=== PATIENT | female | born 1995 | race African-American/Black ===

== ENCOUNTER → 2019-06-27 | Outpatient (CLI) | payer MEDICAID ==
[2019-06-27 17:38] LABS: ABSOLUTE EOSINOPHILS # (AUTO) 0.1 10^3/uL (0.0-0.6); ABSOLUTE LYMPHOCYTES (AUTO) 1.4 10^3/uL (0.5-4.7); ABSOLUTE MONOCYTES (AUTO) 0.6 10^3/uL (0.1-1.4); ABSOLUTE NEUT (AUTO) 7.1 10^3/uL (1.7-8.2); BASOPHILS % (AUTO) 0.4 % (0-2); EOSINOPHILS % (AUTO) 1.4 % (0-6); HEMATOCRIT 28.9 % (36.0-47.0); HEMOGLOBIN 10.2 g/dL (12.0-15.5); LYMPHOCYTES % (AUTO) 15.2 % (13-45); MEAN CORPUSCULAR HEMOGLOBIN 31.9 pg (27.0-33.4); MEAN CORPUSCULAR HGB CONC 35.2 g/dL (32.0-36.0); MEAN CORPUSCULAR VOLUME 91 fl (80-97); MONOCYTES % (AUTO) 6.3 % (3-13); PLATELET COUNT 188 10^3/uL (150-450); RED CELL DISTRIBUTION WIDTH 13.3 % (11.5-14.0); SEGMENTED NEUTROPHILS % (AUTO) 76.7 % (42-78); TOTAL CELLS COUNTED % (AUTO) 100 %; WHITE BLOOD COUNT 9.3 10^3/uL (4.0-10.5)
== END ==
LOC: OD 16:56
PROVIDERS: ATTEND Obstetrics & Gynecology
DX: Z34.03 Encounter for supervision of normal first pregnancy, third trimester (principal)
CPT/HCPCS: 36415; 85025

== ENCOUNTER 2019-07-14 14:40 | Inpatient (IN) | payer MEDICAID ==
[2019-07-14] MEDS ORDERED: PENICILLIN G POTASSIUM 5,000,000 UNIT in DEXTROSE 5%-WATER 100 ML IV ONE (15:09)
[2019-07-14 15:15] LABS: APPEARANCE,URINE CLEAR; BILIRUBIN,URINE NEGATIVE (NEGATIVE); COLOR,URINE STRAW; GLUCOSE, URINE NEGATIVE (NEGATIVE); KETONES,URINE NEGATIVE (NEGATIVE); LEUKOCYTE ESTERASE,URINE NEGATIVE (NEGATIVE); NITRITE,URINE NEGATIVE (NEGATIVE); PROTEIN,URINE NEGATIVE (NEGATIVE); URINE SPECIFIC GRAVITY 1.004; UROBILINOGEN,URINE NEGATIVE mg/dL (<2.0)
[2019-07-14 15:17] LABS: ABSOLUTE EOSINOPHILS # (AUTO) 0.1 10^3/uL (0.0-0.6); ABSOLUTE LYMPHOCYTES (AUTO) 1.4 10^3/uL (0.5-4.7); ABSOLUTE MONOCYTES (AUTO) 0.7 10^3/uL (0.1-1.4); ABSOLUTE NEUT (AUTO) 8.2 10^3/uL (1.7-8.2); BASOPHILS % (AUTO) 0.4 % (0-2); EOSINOPHILS % (AUTO) 0.9 % (0-6); HEMATOCRIT 31.4 % (36.0-47.0); HEMOGLOBIN 10.9 g/dL (12.0-15.5); LYMPHOCYTES % (AUTO) 13.5 % (13-45); MEAN CORPUSCULAR HEMOGLOBIN 31.8 pg (27.0-33.4); MEAN CORPUSCULAR HGB CONC 34.8 g/dL (32.0-36.0); MEAN CORPUSCULAR VOLUME 91 fl (80-97); MONOCYTES % (AUTO) 6.6 % (3-13); PLATELET COUNT 197 10^3/uL (150-450); RED BLOOD COUNT 3.44 10^6/uL (3.72-5.28); SEGMENTED NEUTROPHILS % (AUTO) 78.6 % (42-78); TOTAL CELLS COUNTED % (AUTO) 100 %; WHITE BLOOD COUNT 10.4 10^3/uL (4.0-10.5)
[2019-07-14 15:34] LABS: URINE AMPHETAMINES SCREEN NEGATIVE; URINE BARBITURATES SCREEN NEGATIVE; URINE BENZODIAZEPINES SCREEN NEGATIVE; URINE COCAINE SCREEN NEGATIVE; URINE MARIJUANA (THC) SCREEN NEGATIVE; URINE METHADONE SCREEN NEGATIVE; URINE PHENCYCLIDINE SCREEN NEGATIVE
[2019-07-14] MEDS ORDERED: OXYTOCIN/NORMAL SALINE 20 UNIT/1,000 ML RTUINJ IV PRN (15:34)
[2019-07-14 15:39] LABS: ALBUMIN 3.7 g/dL (3.5-5.0); ALKALINE PHOSPHATASE 124 U/L (38-126); ANION GAP 7 (5-19); ASPARTATE AMINO TRANSFERASE 18 U/L (14-36); BILIRUBIN,TOTAL 0.4 mg/dL (0.2-1.3); BLOOD UREA NITROGEN 12 mg/dL (7-20); CALCIUM 9.5 mg/dL (8.4-10.2); CARBON DIOXIDE 26 mmol/L (22-30); CHLORIDE 105 mmol/L (98-107); GLUCOSE 73 mg/dL (75-110); POTASSIUM 3.7 mmol/L (3.6-5.0); TOTAL PROTEIN 7.3 g/dL (6.3-8.2); UR PRO/CREAT RATIO RESULT 0.5 mg/mg (0.0-0.2); URIC ACID 7.7 mg/dL (2.5-6.2); URINE CREATININE 44.3 mg/dL (16-327); URINE PROTEIN 21.2 mg/dL (<12)
--- NOTE | 2019-07-14 16:15 | Admission Physical ---
Datetime Report Generated by CPN: 07/14/2019 16:15 CURRENT ADMISSION Chief Complaint: Sent from OB Office for Evaluation and Treatment - Please Specify Chief Complaint Other: elevated BP x2 with abnormal labs Indication for Induction: PreEclampsia Admit Impression : Term, Intrauterine Admit Plan: Admit to Unit; Initiate Labor Induction Protocol ALLERGIES Medication Allergies: No Medication Allergies: No Known Drug Allergies (07/14/2019) Latex: No Latex Allergies Food Allergies: None Environmental Allergies: None OBSTETRICAL HISTORY EDC: 08/02/2019 00:00 : 1 Para: 0 Term: 0 : 0 SAB: 0 IAB: 0 Ectopic: 0 Livin Cesareans: 0 VBACs: 0 Multiple Births: 0 Gestational Diabetes: No Rh Sensitization: No Incompetent Cervix: No BASSEM: No Infertility: No ART Treatment: No Uterine Anomaly: No IUGR: No Hx Previous C/S: No Macrosomia: No Hx Loss/Stillborn: No PIH: No Hx : No Placenta Previa/Abruption: No Depression/PP Depression: No PTL/PROM: No Post Hemorrhage: No Current Procedures: Ultrasound; NST Obstetrical History Comments: G1 - [place] SEE RECORDS Alcohol: No Marijuana : No Cocaine: No Other Illicit Drugs: No Cigarettes: Never Smoker. [id number] MEDICAL HISTORY Diabetes: No Blood Transfusion: No Pulmonary Disease (Asthma, TB): No Breast Disease: No Hypertension: No Cognos Consultant Surgery: No Heart Disease: No Hosp/Surgery: No Autoimmune Disorder: No Anesthetic Complications: No Kidney Disease: No Abnormal Pap Smear: No Neuro/Epilepsy: No Psychiatric Disorders: No Other Medical Diseases: No Hepatitis/Liver Disease: No Significant Family History: No Varicosities/Phlebitis: No Trauma/Violence : No Thyroid Dysfunction: No INFECTIOUS HISTORY Gonorrhea: No Genital Herpes: No Chlamydia: No Tuberculosis: No Syphilis: No Hepatitis: No HIV/AIDS Exposure: No Rash or Viral Illness: No HPV: No PHYSICAL EXAM General: Normal HEENT: Normal Neurologic: Normal Thyroid: Deferred Heart: Normal Lungs: Normal Breast: Deferred Back: Normal Abdomen: Normal Genitourinary Exam: Normal Extremities: Normal DTRs: Normal Pelvic Type: Adequate Vital Signs: Reviewed Details Vital Signs: mild range elevation in BP VAGINAL EXAM Dilatation: 5 Effacement: 90 Station: -1 Contraction Comments: irreg MEMBRANES Membranes: Intact FETUS A EGA: 37.2 Monitoring: External US FHR- Baseline: 135 Variability: Moderate 6-25bpm Accelerations: 15X15 Decelerations: None Estimated Weight (gm): 3500 Presentation: Vertex Admit Comment: at term with elevated BP since 11/4/19. abnormal labs=creatinine 1.4 and pr/cr 0.5. dx of preeclampsia today with favorable cx. c/w dr tristan and pitocin ordered. +GBS-penicillin ordered. pt agrees with plan for IOL now. PLANS FOR LABOR AND DELIVERY Labor and Delivery: None Pain Management: Natural; Medications; Epidural Feeding Preference: Breast Benefit of Breast Feed Discussed: Yes Circumcision: N/A INFORMED CONSENT Assignment: Aida Tristan MD Signature: with User ID: [email or web address] : with User ID: [email or web address]
[2019-07-14] MEDS ORDERED: OXYTOCIN 10 UNIT/ML VIAL ONE (16:41)
[2019-07-14] MEDS ORDERED: PENICILLIN G-K 5 MILLION UNIT VIAL ONE ×2 (16:41→20:44)
[2019-07-14] MEDS ORDERED: OXYTOCIN/NORMAL SALINE 20 UNIT/1,000 ML RTUINJ ONE (16:42)
[2019-07-14] MEDS ORDERED: MISOPROSTOL 0.2 MG TABLET ONE (16:42)
[2019-07-14] MEDS ORDERED: LIDOCAINE 1% INJ-PF (10 MG/ML) 30 ML SDV ONE (16:42)
[2019-07-14] MEDS: RINGERS SOLUTION,LACTATED 1,000 ML IV PRN (16:52)
[2019-07-14] MEDS ORDERED: HYDRALAZINE HCL INJ/PF 20 MG/1 ML SDV ONE (18:23)
[2019-07-14] MEDS ORDERED: HYDRALAZINE HCL INJ/PF 20 MG/1 ML SDV IV ONE (18:24)
[2019-07-14] MEDS: PENICILLIN G POTASSIUM 2,500,000 UNIT in DEXTROSE 5%-WATER 50 ML IV SCH (20:51)
[2019-07-15] MEDS ORDERED: BUPIVACAINE HCL 0.25 % INJ/PF (2.5 MG/1 ML) 30 ML VIAL ONE (00:13)
[2019-07-15] MEDS ORDERED: FENTANYL/BUPIVACAINE/NS/PF 300 MCG/150 ML RTUINJ EPI ONE (00:13)
[2019-07-15] MEDS ORDERED: EPHEDRINE SULFATE INJ 50 MG/1 ML AMPULE ONE (00:13)
[2019-07-15] MEDS: RINGERS SOLUTION,LACTATED 1,000 ML IV PRN (01:00)
[2019-07-15] MEDS ORDERED: PENICILLIN G-K 5 MILLION UNIT VIAL ONE (01:23)
[2019-07-15] MEDS: PENICILLIN G POTASSIUM 2,500,000 UNIT in DEXTROSE 5%-WATER 50 ML IV SCH ×2 (01:30→06:04)
[2019-07-15] MEDS ORDERED: ACETAMINOPHEN 650 MG SUPP.RECT PR PRN (04:31)
[2019-07-15] MEDS ORDERED: PROMETHAZINE HCL INJ 25 MG/1 ML VIAL IV PRN (04:31)
[2019-07-15] MEDS ORDERED: DIPH/PERTUSS(ACELL)/TETANUS VAC/PF 0.5 ML SYR (>=10YO) IM PRN (04:31)
[2019-07-15] MEDS ORDERED: PROMETHAZINE HCL 25 MG TABLET PO PRN (04:31)
[2019-07-15] MEDS ORDERED: MAGNESIUM HYDROXIDE SUSP 30 ML UDCUP PO PRN (04:31)
[2019-07-15] MEDS ORDERED: DIBUCAINE 1% OINTMENT 56 GM TP PRN (04:31)
[2019-07-15] MEDS ORDERED: MEASLES,MUMPS&RUBELLA VACC/PF 0.5 ML VIAL SUBCUT PRN (04:31)
[2019-07-15] MEDS ORDERED: ZOLPIDEM TARTRATE 5 MG TABLET PO PRN (04:31)
[2019-07-15] MEDS ORDERED: ACETAMINOPHEN WITH CODEINE #3 TABLET PO PRN ×2 (04:31)
[2019-07-15] MEDS ORDERED: PSEUDOEPHEDRINE HCL 30 MG TABLET PO PRN (04:31)
[2019-07-15] MEDS ORDERED: BENZOCAINE/MENTHOL AEROSOL SPRAY 56 ML TOP PRN (04:31)
[2019-07-15] MEDS ORDERED: PROMETHAZINE HCL 25 MG SUPP.RECT PR PRN (04:31)
[2019-07-15] MEDS ORDERED: NA PHOS,M-B/NA PHOS,DI-BA (ADULT) 133 ML ENEMA PR PRN (04:31)
[2019-07-15] MEDS ORDERED: DIPHENHYDRAMINE HCL 25 MG CAPSULE PO PRN (04:31)
[2019-07-15] MEDS ORDERED: OXYTOCIN/NORMAL SALINE 20 UNIT/1,000 ML RTUINJ IV PRN (04:31)
[2019-07-15] MEDS ORDERED: GLYCERIN/WITCH HAZEL LEAF 1 EACH MED..WIPE TP PRN (04:31)
[2019-07-15] MEDS ORDERED: IBUPROFEN 800 MG TABLET ONE (05:38)
[2019-07-15] MEDS: IBUPROFEN 800 MG TABLET PO SCH ×3 (05:40→21:09)
--- NOTE | 2019-07-15 05:54 | Delivery Summary ---
Del Sum A-C Datetime Report Generated by CPN: 07/15/2019 05:54 DELIVERY PERSONNEL DELIVERY PERSONNEL: [id number] Delivery Doctor:: Aida Cohn MD Labor and Delivery Nurse:: Mihaela Vázquez RN Nursery Nurse:: Linda Nicolas RN Billet Checker/SENIOR SALES EXECUTIVE: Patria Ross, ST MATERNAL INFORMATION Delivery Anesthesia: Epidural Medications After Delivery: Pitocin Drip 20 Units/1000ml NSS Estimated Blood Loss (ml): 200 Delivery QBL: 200 Delivery QBL Comment: Delivery 200 Maternal Complications: None LABOR SUMMARY EDC: 08/02/2019 00:00 No. Babies in Womb: 1 Attempted: No Labor Anesthesia: Epidural LABOR INFORMATION Reason for Induction: Gestational Hypertension; Pre-Eclampsia Onset of Labor: 07/14/2019 23:35 Complete Dilatation: 07/15/2019 03:36 Oxytocin: N/A Group B Beta Strep: positive Antibiotics # of Doses: 3 Antibiotics Time of Last Dose: 0130 Name of Antibiotic Given: pcn Steroids Given: None Reason Steroids Not Administered: Not Applicable MEMBRANES Membranes Rupture Method: Spontaneous Rupture of Membranes: 07/15/2019 02:14 Length of Rupture (hr): 1.65 Amniotic Fluid Color: Clear Amniotic Fluid Amount: Small STAGES OF LABOR Stage 1 hr: 4 Stage 1 min: 1 Stage 2 hr: 0 Stage 2 min: 17 Stage 3 hr: 0 Stage 3 min: 3 Total Time in Labor hr: 4 Total Time in Labor min: 21 VAGINAL DELIVERY Episiotomy: None Laceration #1: None Laceration Extension #1: N/A Laceration Repair: Yes Sponge Count Correct: Yes Sharps Count Correct: Yes CSECTION DELIVERY Primary Indication: N/A CSection Incidence: N/A Labor: N/A Elective: N/A BABY A INFORMATION Delivery Date/Time: 07/15/2019 03:53 Method of Delivery: Vaginal Born in Route : No : N/A Forceps: N/A Vacuum Extraction: N/A Shoulder Dystocia : No PRESENTATION/POSITION BABY A Presentation: Cephalic Breech Presentation: N/A PLACENTA INFORMATION BABY A Placenta Delivery Time : 07/15/2019 03:56 Placenta Method of Delivery: Spontaneous Placenta Status: Delivered SCORES BABY A Heart Rate 1 min: >100 bpm Resp Effort 1 min: Good Cry Reflex Irritability 1 min: Cough or Sneeze or Pulls Away Muscle Tone 1 min: Active Motion Color 1 min: Body [place], Extremities Blue Resuscitation Effort 1 min: Tactile Stimulation SCORE 1 MIN: 9 Heart Rate 5 min: >100 bpm Resp Effort 5 min: Good Cry Reflex Irritability 5 min: Cough or Sneeze or Pulls Away Muscle Tone 5 min: Active Motion Color 5 min: Body [place], Extremities Blue Resuscitation Effort 5 min: Tactile Stimulation SCORE 5 MIN: 9 INFANT INFORMATION BABY A Gestational Age at Delivery: 37.3 Gestational Status: Early Term- 37- 38.6 Weeks Outcome : Liveborn Infant Condition : Stable Infant Sex: Male IDENTIFICATION BABY A Verification Date/Time: 07/15/2019 04:08 ID Band Number: [id number] Mother's Name Verified: Yes RN Verifying : Can Pena, RN and Mihaela Gurpreet, RN WEIGHT/LENGTH BABY A Infant Birthweight (gm): 2830 Weight (lb): 6 Infant Weight (oz): 4 Infant Length (in): 20.00 Infant Length (cm): 50.80 CORD INFORMATION BABY A No. Cord Vessels: 3 Nuchal Cord : N/A ASSESSMENT BABY A Infant Complications: None Physical Findings at Delivery: Within Normal Limits Respirations: Appears Normal Skin to Skin: Yes Cognos Developer/ALS Called : No Transferred To: Remains with Mother SIGNATURES Signature: with User ID: [email or web address] : I was personally available for consultation and serving as supervising physician for the MLP.
[2019-07-15] MEDS: DOCUSATE SODIUM 100 MG CAPSULE PO SCH ×2 (09:31→17:14)
[2019-07-15] MEDS: PRENATAL VITAMIN W DHA CAPSULE PO SCH (09:31)
[2019-07-15] MEDS: SENNOSIDES/DOCUSATE 8.6-50 MG 1 EACH TABLET PO SCH (09:31)
[2019-07-15] MEDS: FERROUS SULFATE 325 MG TABLET PO SCH ×2 (09:31→17:14)
[2019-07-15] MEDS: FAMOTIDINE 20 MG TABLET PO SCH ×2 (09:35→21:09)
[2019-07-15] MEDS ORDERED: INFLUENZA QUAD (6MOS+) 2019-20 VAC 0.5 ML SYR IM ONE (09:45)
[2019-07-16] MEDS: IBUPROFEN 800 MG TABLET PO SCH ×3 (07:23→21:20)
[2019-07-16 08:24] LABS: HEMATOCRIT 21.5 % (36.0-47.0); MEAN CORPUSCULAR HEMOGLOBIN 31.6 pg (27.0-33.4); MEAN CORPUSCULAR HGB CONC 35.1 g/dL (32.0-36.0); MEAN CORPUSCULAR VOLUME 90 fl (80-97); PLATELET COUNT 142 10^3/uL (150-450); RED BLOOD COUNT 2.39 10^6/uL (3.72-5.28); RED CELL DISTRIBUTION WIDTH 13.2 % (11.5-14.0); WHITE BLOOD COUNT 12.4 10^3/uL (4.0-10.5)
[2019-07-16 08:26] LABS: HEMOGLOBIN 7.6 g/dL (12.0-15.5)
[2019-07-16] MEDS: SENNOSIDES/DOCUSATE 8.6-50 MG 1 EACH TABLET PO SCH (09:40)
[2019-07-16] MEDS: FERROUS SULFATE 325 MG TABLET PO SCH ×2 (09:40→17:14)
[2019-07-16] MEDS: PRENATAL VITAMIN W DHA CAPSULE PO SCH (09:40)
[2019-07-16] MEDS: FAMOTIDINE 20 MG TABLET PO SCH ×2 (09:40→21:20)
[2019-07-16] MEDS: DOCUSATE SODIUM 100 MG CAPSULE PO SCH ×2 (09:40→17:14)
[2019-07-16] MEDS ORDERED: FERRIC CARBOXYMALTOSE INJ 750 MG/15 ML VIAL IV ONE (10:01)
[2019-07-16] MEDS ORDERED: FERRIC CARBOXYMALTOSE 750 MG in NORMAL SALINE 250 ML IV ONE (11:00)
--- NOTE | 2019-07-16 12:31 | PDOC PROGRESS REPORT ---
Subjective-OB Progress Note for:: 07/16/19 Subjective: 23yo G1 now P1 s/p ppd1. Ambulating, voiding and without difficulty. Pain well controlled with medication, no concerns at this time Physical Exam (OB) Vital Signs: Temp Pulse Resp BP Pulse Ox 98.3 F 83 14 120/61 100 07/16/19 11:24 07/16/19 11:24 07/16/19 11:24 07/16/19 11:24 07/16/19 11:24 Intake & Output 07/15/19 07/16/19 07/17/19 06:59 06:59 06:59 Intake Total 1000 Balance 1000 Weight 99.7 kg - General General Appearance: Appears well In distress: None - PIH/Pre-Eclampsia DTR's: 1 + Clonus: Negative Headache: Absent Epigastric Pain: No Visual Changes: No - Episiotomy/Laceration Site Condition: N/A - Lochia Lochia Amount: Small 10-25 ml Lochia Color: Rubra/Red - Abdomen Description: Soft Hernia Present: No Fundal Description: Firm, Midline Fundal Height: u/u - u/2 - Respiratory Respiratory Status: No respiratory distress - Extremities Upper extremity: Normal inspection Lower extremities: Normal inspection - Neurological Cognition: Normal Orientation: AAOx4 - Psychological Associated symptoms: Normal affect, Normal mood Objective-Diagnostic Laboratory: 07/16/19 06:25 07/14/19 15:00 07/16/19 06:25 WBC 12.4 H RBC 2.39 L Hgb 7.6 L D Hct 21.5 L MCV 90 MCH 31.6 MCHC 35.1 RDW 13.2 Plt Count 142 L Assessment and Plan(PN) - Assessment and Plan (1) Anemia due to acute blood loss Is this a current diagnosis for this admission?: Yes Plan: increase dietary iron and FeSO4 BID, iron infusion ordered (2) Encounter for induction of labor Is this a current diagnosis for this admission?: Yes Plan: delivered (3) Group B Streptococcus carrier, antepartum Is this a current diagnosis for this admission?: Yes Plan: delivered (4) Pre-eclampsia Qualifiers: Trimester: unspecified trimester Qualified Code(s): O14.90 - Unspecified pre-eclampsia, unspecified trimester Is this a current diagnosis for this admission?: Yes Plan: continue to monitor for s/s of post pre-e. Mild range-normal bps since delivery.Will repeat CBC in the AM. - Time Spent with Patient Time with patient: Less than 15 minutes Medications reviewed and adjusted accordingly: Yes - Disposition Anticipated Discharge: Home Within: within 24 hours
[2019-07-17] MEDS: IBUPROFEN 800 MG TABLET PO SCH ×2 (05:30→14:06)
[2019-07-17 07:18] LABS: HEMATOCRIT 21.2 % (36.0-47.0); MEAN CORPUSCULAR HEMOGLOBIN 32.6 pg (27.0-33.4); MEAN CORPUSCULAR HGB CONC 36.1 g/dL (32.0-36.0); MEAN CORPUSCULAR VOLUME 90 fl (80-97); PLATELET COUNT 179 10^3/uL (150-450); RED BLOOD COUNT 2.35 10^6/uL (3.72-5.28); RED CELL DISTRIBUTION WIDTH 13.3 % (11.5-14.0); WHITE BLOOD COUNT 10.8 10^3/uL (4.0-10.5)
[2019-07-17 07:22] LABS: HEMOGLOBIN 7.7 g/dL (12.0-15.5)
--- NOTE | 2019-07-17 09:08 | PDOC DISCHARGE SUMMARY ---
Impression - Admit/DC Date/PCP Admission Date/Primary Care Provider: 07/14/19 15:36 VICKIE WILSON MD Discharge Date: 07/17/19 - PP Day #2, doing well, denies headache today. A+, Rubella Immune, - Discharge Diagnosis (1) Anemia due to acute blood loss Is this a current diagnosis for this admission?: Yes (2) Encounter for induction of labor Is this a current diagnosis for this admission?: Yes (3) Group B Streptococcus carrier, antepartum Is this a current diagnosis for this admission?: Yes (4) Pre-eclampsia Is this a current diagnosis for this admission?: Yes - Additional Information Resuscitation Status: Full Code Discharge Diet: As Tolerated, Regular Discharge Activity: Activity As Tolerated, No Lifting Over 10 Pounds, Pelvic Rest Referrals: VICKIE WILSON MD [Primary Care Provider] - Prescriptions: Ibuprofen [Motrin 800 mg Tablet] 800 mg PO Q8 #60 tablet Home Medications: Ferrous Sulfate [Iron] 325 mg PO BID 07/14/19 Prenat 115/Iron Fum/Folic/Dss [ 19 Tablet] 1 tab PO DAILY 07/14/19 Ibuprofen [Motrin 800 mg Tablet] 800 mg PO Q8 #60 tablet 07/17/19 HPI Reason(s) for Admission: Induction of Labor, Obstetric Complications, Other - Pre-eclampsia Procedures: NST, Ultrasound Intrapartum Procedure(s): Spontaneous Vaginal Delivery - superficial vaginal tear Hospital Course Hospital Course: stable Results Laboratory Results: WBC 10.8 10^3/uL (4.0-10.5) H 07/17/19 06:57 RBC 2.35 10^6/uL (3.72-5.28) L 07/17/19 06:57 Hgb 7.7 g/dL (12.0-15.5) L 07/17/19 06:57 Hct 21.2 % (36.0-47.0) L 07/17/19 06:57 MCV 90 fl (80-97) 07/17/19 06:57 MCH 32.6 pg (27.0-33.4) 07/17/19 06:57 MCHC 36.1 g/dL (32.0-36.0) H 07/17/19 06:57 RDW 13.3 % (11.5-14.0) 07/17/19 06:57 Plt Count 179 10^3/uL (150-450) 07/17/19 06:57 Lymph % (Auto) 13.5 % (13-45) 07/14/19 15:00 [place] % (Auto) 6.6 % (3-13) 07/14/19 15:00 Eos % (Auto) 0.9 % (0-6) 07/14/19 15:00 Baso % (Auto) 0.4 % (0-2) 07/14/19 15:00 Absolute Neuts (auto) 8.2 10^3/uL (1.7-8.2) 07/14/19 15:00 Absolute Lymphs (auto) 1.4 10^3/uL (0.5-4.7) 07/14/19 15:00 Absolute Monos (auto) 0.7 10^3/uL (0.1-1.4) 07/14/19 15:00 Absolute Eos (auto) 0.1 10^3/uL (0.0-0.6) 07/14/19 15:00 Absolute Basos (auto) 0.0 10^3/uL (0.0-0.2) 07/14/19 15:00 Seg Neutrophils % 78.6 % (42-78) H 07/14/19 15:00 Sodium 138.4 mmol/L (137-145) 07/14/19 15:00 Potassium 3.7 mmol/L (3.6-5.0) 07/14/19 15:00 Chloride 105 mmol/L (98-107) 07/14/19 15:00 Carbon Dioxide 26 mmol/L (22-30) 07/14/19 15:00 Anion Gap 7 (5-19) 07/14/19 15:00 BUN 12 mg/dL (7-20) 07/14/19 15:00 Creatinine 1.43 mg/dL (0.52-1.25) H 07/14/19 15:00 Est GFR ( Amer) 56 (>60) L 07/14/19 15:00 Est GFR (MDRD) Non-Af 46 (>60) L 07/14/19 15:00 Glucose 73 mg/dL (75-110) L 07/14/19 15:00 Uric Acid 7.7 mg/dL (2.5-6.2) H 07/14/19 15:00 Calcium 9.5 mg/dL (8.4-10.2) 07/14/19 15:00 Total Bilirubin 0.4 mg/dL (0.2-1.3) 07/14/19 15:00 Direct Bilirubin 0.0 mg/dL (0.0-0.4) 07/14/19 15:00 Neonat Total Bilirubin Not Reportable 07/14/19 15:00 Neonat Direct Bilirubin Not Reportable 07/14/19 15:00 Neonat Indirect Bili Not Reportable 07/14/19 15:00 AST 18 U/L (14-36) 07/14/19 15:00 ALT 10 U/L (<35) 07/14/19 15:00 Alkaline Phosphatase 124 U/L (38-126) 07/14/19 15:00 Total Protein 7.3 g/dL (6.3-8.2) 07/14/19 15:00 Albumin 3.7 g/dL (3.5-5.0) 07/14/19 15:00 Urine Color STRAW 07/14/19 15:00 Urine Appearance CLEAR 07/14/19 15:00 Urine pH 7.0 (5.0-9.0) 07/14/19 15:00 Ur Specific [place] 1.004 07/14/19 15:00 Urine Protein NEGATIVE mg/dL (NEGATIVE) 07/14/19 15:00 Urine Glucose (UA) NEGATIVE mg/dL (NEGATIVE) 07/14/19 15:00 Urine Ketones NEGATIVE mg/dL (NEGATIVE) 07/14/19 15:00 Urine Blood NEGATIVE (NEGATIVE) 07/14/19 15:00 Urine Nitrite NEGATIVE (NEGATIVE) 07/14/19 15:00 Urine Bilirubin NEGATIVE (NEGATIVE) 07/14/19 15:00 Urine Urobilinogen NEGATIVE mg/dL (<2.0) 07/14/19 15:00 Ur Leukocyte Esterase NEGATIVE (NEGATIVE) 07/14/19 15:00 Urine WBC (Auto) 1 /HPF 07/14/19 15:00 Squamous Epi Cells Auto 1 /HPF 07/14/19 15:00 Urine Creatinine 44.3 mg/dL (16-327) 07/14/19 15:00 Protein/Creatinin Ratio 0.5 mg/mg (0.0-0.2) H 07/14/19 15:00 Urine Total Protein 21.2 mg/dL (<12) H 07/14/19 15:00 Urine Ascorbic Acid NEGATIVE (NEGATIVE) 07/14/19 15:00 Urine Opiates Screen NEGATIVE 07/14/19 15:00 Urine Methadone Screen NEGATIVE 07/14/19 15:00 Ur Barbiturates Screen NEGATIVE 07/14/19 15:00 Ur Phencyclidine Scrn NEGATIVE 07/14/19 15:00 Ur Amphetamines Screen NEGATIVE 07/14/19 15:00 U Benzodiazepines Scrn NEGATIVE 07/14/19 15:00 Urine Cocaine Screen NEGATIVE 07/14/19 15:00 U Marijuana (THC) Screen NEGATIVE 07/14/19 15:00 RPR NONREACTIVE (NONREACTIVE) 07/14/19 15:00 Blood Type A POSITIVE 07/14/19 15:37 Antibody Screen NEGATIVE 07/14/19 15:37 Plan Health Concerns: iron rich foods and iron supplementation to increase Hgb. BP precautions due to pre-eclampsia Plan of Treatment: d/c to home,Pt to f/u in one week for a BP check at [facility] Time Spent: Less than 30 Minutes
[2019-07-17 09:44] VITALS: BP 124/68
[2019-07-17] MEDS: FAMOTIDINE 20 MG TABLET PO SCH (10:47)
[2019-07-17] MEDS: SENNOSIDES/DOCUSATE 8.6-50 MG 1 EACH TABLET PO SCH (10:47)
[2019-07-17] MEDS: PRENATAL VITAMIN W DHA CAPSULE PO SCH (10:47)
[2019-07-17] MEDS: FERROUS SULFATE 325 MG TABLET PO SCH (10:47)
[2019-07-17] MEDS: DOCUSATE SODIUM 100 MG CAPSULE PO SCH (10:47)
== END 2019-07-17 17:15 | disposition home or self-care (01) | DRG 806 ==
LOC: LC 14:40 → LR 15:36 → 2S 07-15 05:57
PROVIDERS: ADMIT Obstetrics & Gynecology; ATTEND Obstetrics & Gynecology
PROC: 10E0XZZ Delivery of Products of Conception, External Approach (ICD-10-PCS; principal; 2019-07-15)
PROC: 3E0234Z Introduction of Serum, Toxoid and Vaccine into Muscle, Percutaneous Approach (ICD-10-PCS; 2019-07-17)
PROC: 3E02340 Introduction of Influenza Vaccine into Muscle, Percutaneous Approach (ICD-10-PCS; 2019-07-17)
DX: O14.94 Unspecified pre-eclampsia, complicating childbirth (principal); D62 Acute posthemorrhagic anemia; Z37.0 Single live birth; O99.824 Streptococcus B carrier state complicating childbirth; Z3A.37 37 weeks gestation of pregnancy; O99.02 Anemia complicating childbirth; O70.0 First degree perineal laceration during delivery; Z23 Encounter for immunization
CPT/HCPCS: 36415; 80053; 80307; 81001; 82570; 84156; 84550; 85025; 85027; 86592; 86850; 86900; 86901; 90686; 90715; J0360; J1439; J2540; J2590; J3010; J3490; J7050

== ENCOUNTER 2019-11-07 20:23 | Emergency (ER) | payer SELFPAY ==
[2019-11-07] MEDS ORDERED: IBUPROFEN 600 MG TABLET PO ONE (21:01)
--- NOTE | 2019-11-07 21:03 | ER Document Report ---
ED Medical Screen (RME) - General Chief Complaint: Headache Stated Complaint: COUGH,HEADACHE Time Seen by Provider: 11/07/19 20:58 Primary Care Provider: VICKIE WILSON MD [Primary Care Provider] - Follow up as needed Notes: HPI: 23-year-old female presenting to the emergency department for evaluation of frontal headache that has not gone away today. Denies posterior neck pain. Did not realize she had a fever until she got to the ER tonight. Patient did develop a mildly productive cough for 5 days ago denies shortness of breath or chest pain. Denies dysuria. Denies abdominal pain I have greeted and performed a rapid initial assessment of this patient. A comprehensive ED assessment and evaluation of the patient, analysis of test results and completion of the medical decision making process will be conducted by additional ED providers PHYSICAL EXAMINATION: GENERAL: Well-appearing, well-nourished and in no acute distress. HEAD: Atraumatic, normocephalic. EYES: sclera anicteric, conjunctiva are normal. ENT: Moist mucous membranes. NECK: Normal range of motion. Patient has no nuchal rigidity. LUNGS: Normal work of breathing, lung sounds are clear to auscultation, pulse oximetry 95% on room air HEART: 2+ radial pulses bilaterally, regular rate and rhythm ABD: limited by positioning for exam in triage. EXTREMITIES: no pitting or edema. No cyanosis. NEUROLOGICAL: No focal neurological deficits. Moves all extremities spontaneously and on command. PSYCH: Normal mood, normal affect. SKIN: Warm, Dry, normal turgor, no rashes or lesions noted. TRAVEL OUTSIDE OF THE [place] IN LAST 30 DAYS: No - Related Data Allergies/Adverse Reactions: No Known Drug Allergies Allergy (Verified 07/14/19 14:51) Physical Exam - Vital signs Vitals: Temp Pulse Resp BP Pulse Ox 100.8 F H 103 H 18 126/68 H 95 11/07/19 20:28 11/07/19 20:28 11/07/19 20:28 11/07/19 20:28 11/07/19 20:28 Course - Vital Signs Vital signs: Temp Pulse Resp BP Pulse Ox 100.8 F H 103 H 18 126/68 H 95 11/07/19 20:28 11/07/19 20:28 11/07/19 20:28 11/07/19 20:28 11/07/19 20:28 Doctor's Discharge - Discharge Referrals: VICKIE WILSON MD [Primary Care Provider] - Follow up as needed
--- NOTE | 2019-11-07 21:46 | RADIOLOGY REPORT (SQ) ---
EXAM DESCRIPTION: X-RAY CHEST TWO VIEWS CLINICAL HISTORY: 23 years, Female, cough fever COMPARISON: None. FINDINGS: PA and lateral chest radiographs were performed at 2138 hours on 11/07/2019. The lungs are well expanded and clear. The costophrenic sulci are sharp. The cardiac silhouette, hilar regions, trachea, soft tissues and bony structures are unremarkable. IMPRESSION: No acute cardiopulmonary disease.
[2019-11-07 22:24] LABS: A TYPE INFLUENZA AG NEGATIVE (NEGATIVE); B INFLUENZA AG NEGATIVE (NEGATIVE)
[2019-11-08] MEDS ORDERED: AZITHROMYCIN 250 MG TABLET PO ONE (01:50)
--- NOTE | 2019-11-08 01:55 | ER Document Report ---
HPI - HPI Time Seen by Provider: 11/07/19 20:58 Pain Level: 3 Context: Patient is a 23-year-old female that comes in the emergency department for chief complaint of approximately 5 days of sick symptoms including congestion, cough, and some generalized body aches. She states yesterday she started getting intermittent headaches and her cough is actually worsening. She states that she was found to have a fever on arrival, after treatment of the fever her headache resolved. She denies current headache or any symptoms other than occasional coughing episodes. She does report intermittently productive cough which is worse than prior. She denies difficulty breathing, wheezing, smoking, history of asthma or COPD. She has not had the influenza vaccine. She takes no daily medications, denies . - CONSTITUTIONAL Constitutional: REPORTS: Fever. DENIES: Chills - EENT EENT: DENIES: Sore Throat, Ear Pain, Eye problems - NEURO Neurology: REPORTS: Headache. DENIES: Weakness, Vision blurred, Dizzinesss / Vertigo - CARDIOVASCULAR Cardiovascular: DENIES: Chest pain - RESPIRATORY Respiratory: REPORTS: Coughing - productive yellow. DENIES: Trouble Breathing - GASTROINTESTINAL Gastrointestinal: DENIES: Abdominal Pain, Black / Bloody Stools - URINARY Urinary: DENIES: Dysuria, Urgency, Frequency - MUSCULOSKELETAL Musculoskeletal: DENIES: Extremity pain Past Medical History - General Information source: Patient - Social History Smoking Status: Never Smoker Frequency of alcohol use: None Drug Abuse: None Lives with: Family Family History: Reviewed & Not Pertinent Patient has suicidal ideation: No Patient has homicidal ideation: No - Immunizations Immunizations up to date: Yes Hx Diphtheria, Pertussis, Tetanus Vaccination: Yes Vertical Provider Document - CONSTITUTIONAL General Appearance: WD/WN, No Apparent Distress - INFECTION CONTROL TRAVEL OUTSIDE OF THE [place] IN LAST 30 DAYS: No - HEENT HEENT: Atraumatic, Normocephalic. negative: Normal ENT Exam - Unremarkable oropharyngeal exam, negative ears, unremarkable nasal passages and sinuses except for minimal nasal congestion and mildly swollen turbinates - NECK Neck: Normal Inspection - RESPIRATORY Respiratory: Breath Sounds Normal, No Respiratory Distress, Other - Episodes of congested and productive cough but no tachypnea or labored breathing, lung sounds are clear - CARDIOVASCULAR Cardiovascular: Regular Rate, Regular Rhythm - GI/ABDOMEN Gastrointestinal: Abdomen Soft, Abdomen Non-Tender - BACK Back: Normal Inspection - MUSCULOSKELETAL/EXTREMETIES Musculoskeletal/Extremeties: IAM [place], Non-Tender - NEURO Level of Consciousness: Awake, Alert, Appropriate - DERM Integumentary: Warm, Dry, No Rash Course - Re-evaluation Re-evalutation: Patient is alert and well-appearing. She has no current headache, she has no nuchal rigidity, she has minimal nasal congestion with nontender sinuses. She does have frequent congested cough and cough is intermittently productive. Cough is worsening, she has been sick for around a week, she has now developed fevers with this as well. Influenza negative. No overt pneumonia on chest x- ray. I discussed options with patient. Because of her worsening cough, development of fever, worsening productive cough, there is a possibility that patient has an early underlying developing pneumonia in addition to her likely viral illness. Decision was made to treat her with azithromycin and symptomatic care. Discussed expectations, follow-up, and return precautions. Patient states appreciation and agreement. Stable at time of discharge. - Vital Signs Vital signs: Temp Pulse Resp BP Pulse Ox 98.4 F 103 H 18 126/68 H 95 11/07/19 23:59 11/07/19 20:28 11/07/19 20:28 11/07/19 20:28 11/07/19 20:28 Discharge - Discharge Clinical Impression: Productive cough Fever Qualifiers: Fever type: unspecified Qualified Code(s): R50.9 - Fever, unspecified Condition: Stable Disposition: HOME, SELF-CARE Additional Instructions: Your work-up is negative, however because of your developing fever and worsening cough over the course of this week I suspect that you have an underlying developing pneumonia in addition to a viral illness. Take 600 mg of ibuprofen and 1000 mg of Tylenol every 6 hours if needed for fever, body aches. Rest, drink plenty fluids, complete antibiotics as prescribed. I recommend the Sudafed and Flonase for nasal/sinus congestion as well. Follow-up with primary care. Return if you worsen including difficulty breathing, vomiting, or any other concerning or worsening symptoms. Prescriptions: Fluticasone Propionate [Flonase Nasal [place] 50 Mcg/[place] 16 gm] 2 sprays NASL Q12 #1 inhaler Pseudoephedrine HCl [Sudafed 12 Hour] 120 mg PO Q12 PRN #14 tablet.er PRN Reason: Azithromycin [Zithromax 250 mg Tablet] 250 mg PO ASDIR PRN #4 tablet PRN Reason: Forms: Return to Work Referrals: VICKIE WILSON MD [ACTIVE STAFF] - Follow up as needed
[2019-11-08 02:04] VITALS: BP 140/72
== END 2019-11-08 02:04 | disposition home or self-care (01) ==
LOC: ER 20:23
DX: R05 Cough (principal); R50.9 Fever, unspecified; R09.81 Nasal congestion; M79.10 Myalgia, unspecified site; R51 Headache
CPT/HCPCS: 71046; 87804; 99283